=== PATIENT | female | born 1995 | race African-American/Black ===

== ENCOUNTER 2020-01-25 11:18 | Outpatient (CLI) | payer BC, SELFPAY ==
--- NOTE | ~2020-01-25 | XR_ITS ---
EXAMINATION: XR hand LT min 3V, XR forearm LT 2V, XR wrist LT min 3V EXAM DATE: 01/25/2020 12:04 INDICATION: No known recent injury provided at this time. Pain of the left hand, wrist, forearm. TECHNIQUE: Left hand frontal, lateral and oblique projections obtained and reviewed. Left wrist fron stanley, frontal with ulnar deviation, oblique and lateral projections obtained and reviewed. Frontal an d lateral projections left forearm. There are no prior studies for comparison. FINDINGS: Left metacarpal bones are unremarkable. Left wrist scapholunate joint space is maintained . Forearm is unremarkable. There are no acute fractures or dislocations identified. There is no sub cutaneous gas. The soft tissue is unremarkable. There are no radiopaque foreign bodies. There are no bony erosions identified. The joint spaces are uniform. IMPRESSION: 1. Unremarkable left hand, wrist, forearm exams. Reviewed, dictated and finalized at location B. MARKER IMPRESSION: 1. Unremarkable left hand, wrist, forearm exams. IMPRESSION: 1. Unremarkable left hand, wrist, forearm exams.
== END 2020-01-25 11:19 ==
LOC: MICIMG 11:20
PROVIDERS: PCP Nurse Practitioner Family; Visit Provider Nurse Practitioner Family
DX: M79.632 Pain in left forearm (principal); M25.532 Pain in left wrist; M79.642 Pain in left hand
CPT/HCPCS: 73090; 73110; 73130